=== PATIENT | female | born 1970 | race African-American/Black ===

== ENCOUNTER 2017-02-09 23:35 | Emergency (ER) | payer OTHER ==
[~2017-02-09] VITALS: Ht 162.6 cm; Wt 67.0 kg
[~2017-02-09 23:35] MED LIST: ALBUTEROL17 GM IH; ATROVENT H200 INHALA IH; DAILY MULTIPLE1 EACH PO; ENDOCET 5-3251 EACH PO; FLEXERIL10 MG PO; FLONASE16 G1 BOTH NARES; FLOVENT IH; IBUPROFEN600 MG PO; INDOCIN50 MG PO; LEVAQUIN500 MG PO; LIDODERM 5% P1 PATCH TD; LYRICA50 MG PO; MEDROL DOSEPAK4 MG PO; MELOXICAM15 MG PO; MOBIC15 MG PO; MOBIC7.5 MG PO; MOTRIN800 MG PO; NAPROSYN500 MG PO; NAPROXEN500 MG PO; NORCO 5/3251 TABLET PO; PERCOCET 5/31 TABLET PO; PREDNISONE1 MG PO; PREDNISONE20 MG PO; PREDNISONE50 MG PO; PROVENTIL,2.5 MG/0.5 IH; RELAFEN750 MG PO; SEROQUEL12.5 MG PO; SKELAXIN800 MG PO; TRAMADOL HCL50 MG PO; TYLENOL WITH C1 EACH PO; VALIUM5 MG PO; VENTOLIN HFA18 GM IH; VICODIN,LORT1 TABLET PO; ZITHROMAX Z-PA250 MG PO; ZOFRAN4 MG PO; ZOHYDRO ER10 M1 PO
[2017-02-10] MEDS ORDERED: ROXICODONE5 MG PO (01:35)
[2017-02-10] MEDS ORDERED: PREDNISONE20 MG PO (01:35)
[2017-02-10 01:58] VITALS: BP 121/88
== END 2017-02-10 01:59 | disposition home or self-care (01) ==
LOC: EXP 23:35 → EME 23:35 → EXP 02-10 01:59
DX: M06.9 Rheumatoid arthritis, unspecified (principal); G89.29 Other chronic pain; J45.909 Unspecified asthma, uncomplicated; F17.200 Nicotine dependence, unspecified, uncomplicated; Z91.040 Latex allergy status
CPT/HCPCS: 99281; 99283; J7512